=== PATIENT | male | born 1990 | race African-American/Black ===

== ENCOUNTER 2019-10-22 09:31 | Emergency (ER) | payer OTHER ==
[~2019-10-22] VITALS: Ht 190.5 cm; Wt 171.0 kg
[2019-10-22 09:42] VITALS: BP 134/83
[2019-10-22] MEDS ORDERED: IBUPROFEN 400 MG TABLET. PO ONE (10:00)
--- NOTE | 2019-10-22 10:18 | RAD ---
EXAM: Right ankle, 3 views; right tibia and fibula, 2 views. HISTORY: Pain. COMPARISON: None. FINDINGS: 3 views of the right ankle and 2 views the right tibia and fibula are obtained. 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 No acute fracture is seen. The ankle mortise is intact. There is no osteochondral lesion. There is enthesopathy at the Achilles tendon insertion. There is a fragmented osteophyte or joint loose body along the anterior tibial plateau. IMPRESSION: 1. No acute osseous finding. 2. 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 3. Suspected chronic fragmented intra-articular osteophyte or joint loose body along the anterior tibial plateau. Electronically signed by: Shelley Lipscomb MD (10/22/2019 10:15 AM) [facility] [place]
[2019-10-22] MEDS ORDERED: CYCL10TA2 PO (11:47)
[2019-10-22] MEDS ORDERED: NAPR-683 PO (11:47)
--- NOTE | 2019-10-22 11:47 | PHYS DOC ---
Past Medical History Past Medical History: No Pertinent History Past Surgical History: Other Additional Past Surgical Histo: LEFT KNEE Alcohol Use: None Adult General Chief Complaint Chief Complaint: LOWEREXTREMITY INJURY HPI HPI Patient is a 28 year old male without history of medical problems who presents with complaining of a fall and injury to right leg. Patient states he had a fall. He was at work and twisted his right lower extremity and complaining of pain in his ankle and calf and rated his pain 8/10. Patient denies other injuries and loss of consciousness and focal neurodeficit. Review of Systems Review of Systems Constitutional: Denies fever or chills [] Eyes: Denies change in visual acuity, redness, or eye pain [] HENT: Denies nasal congestion or sore throat [] Respiratory: Denies cough or shortness of breath [] Cardiovascular: No additional information not addressed in HPI [] GI: Denies abdominal pain, nausea, vomiting, bloody stools or diarrhea [] : Denies dysuria or hematuria [] Musculoskeletal: Denies back pain, reports joint pain [] Integument: Denies rash or skin lesions [] Neurologic: Denies headache, focal weakness or sensory changes [] Endocrine: Denies polyuria or polydipsia [] All other systems were reviewed and found to be within normal limits, except as documented in this note. Current Medications Current Medications Current Medications Medications (Trade) Dose Ordered Sig/Ranjith Start Time Stop Time Status Last Admin Dose Admin Ibuprofen (Motrin) 800 mg 1X ONCE 10/22/19 10:00 10/22/19 10:01 DC 10/22/19 10:00 800 MG Allergies Allergies Allergies Coded Allergies Type Severity Reaction Last Updated Verified Penicillins Allergy Unknown Swelling 10/22/19 Yes Physical Exam Physical Exam Constitutional: Well developed, well nourished, mild distress, non-toxic appearance. [] HENT: Normocephalic, atraumatic. Eyes: PERRLA, EOMI, conjunctiva normal, no discharge. [] Neck: Normal range of motion, no tenderness, supple, no stridor. [] Cardiovascular:Heart rate regular rhythm, no murmur [] Lungs & Thorax: Bilateral breath sounds clear to auscultation [] Skin: Warm, dry, no erythema, no rash. [] Back: No tenderness, no CVA tenderness. [] Extremities: Right ankle with mild edema and tenderness in lateral malleolus, no deformity, Without deformity or tenderness or contusion. Neurologic: Alert and oriented X 3, no focal deficits noted. [] Psychologic: Affect normal, judgement normal, mood normal. [] Current Patient Data Vital Signs Vital Signs Date Time Temp Pulse Resp B/P (MAP) Pulse Ox O2 Delivery O2 Flow Rate FiO2 10/22/19 09:42 97.5 75 18 134/83 (100) 99 Room Air 97.5 EKG EKG [] Radiology/Procedures Radiology/Procedures [][facility] [address] [place] [address] IMAGING REPORT Signed PATIENT: FRANCIA KWAN ACCOUNT: [id number] : 1990 LOCATION: ER AGE: 28 SEX: M EXAM STATUS: REG ER ORD. PHYSICIAN: ZAFAR CARVER MD REASON: fall PROCEDURE: ANKLE RIGHT 3V EXAM: Right ankle, 3 views; right tibia and fibula, 2 views. HISTORY: Pain. COMPARISON: None. FINDINGS: 3 views of the right ankle and 2 views the right tibia and fibula are obtained. 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 No acute fracture is seen. The ankle mortise is intact. There is no osteochondral lesion. There is enthesopathy at the Achilles tendon insertion. There is a fragmented osteophyte or joint loose body along the anterior tibial plateau. IMPRESSION: 1. No acute osseous finding. 2. 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 3. Suspected chronic fragmented intra-articular osteophyte or joint loose body along the anterior tibial plateau. Electronically signed by: Shelley Mcguire MD (10/22/2019 10:15 AM) [facility] [place]ATED and SIGNED BY: SHELLEY MCGUIRE MD DATE: 10/22/19 1015 Course & Med Decision Making Course & Med Decision Making Pertinent Imaging studies reviewed. (See chart for details) discharge: I've spoken with the patient and/or caregivers. I've explained the patient's condition, diagnosis and treatment plan based on information available to me at this time. I've answered the patient's and/or caregivers questions and addressed any concerns. The patient and/or caregivers have a good understanding the patient's diagnosis, condition and treatment plan as can be expected at this point. Vital signs have been stabilized. The patient's condition is stable for discharge from the emergency department. The patient will pursue further outpatient evaluation with her primary care provider or other designated consulting physician as outlined in the discharge instructions. Patient and/or caregivers are agreeable to this plan of care and follow-up instructions have been explained in detail. The patient and/or caregivers have received these instructions in written format and expressed understanding of these discharge instructions. The patient and her caregivers are aware that if any significant change in condition or worsening of symptoms should prompt him to immediately return to this of the closest emergency department. If an emergent department is not readily available I would encourage him to call 911. Caroline Disclaimer Anneon Disclaimer This electronic medical record was generated, in whole or in part, using a voice recognition dictation system. Departure Departure Impression: Primary Impression: Right leg injury Additional Impressions: Ankle sprain Morbidly obese Disposition: HOME, SELF-CARE (at 1145) Condition: STABLE Referrals: TYESHA KENNEDY DO, [facility] (PCP) Patient Instructions: Ankle Sprain Additional Instructions: Drink plenty of liquids Follow-up with your primary care physician in 3-5 days Return to ER if not getting better Apply ice on the affected area Thank you for visiting . We appreciate you trusting us with your care. If any additional problems come up don't hesitate to return to visit us. Please follow up with your primary care provider so they can plan additional care if needed and know about the problem that you had. If symptoms worsen come back to the Emergency Department. Any concerning symptoms that start such as chest pain, shortness of air, weakness or numbness on one side of the body, running high fevers or any other concerning symptoms return to the ER. Scripts Naproxen (NAPROSYN) 500 Mg Tablet 1 TAB PO BID for pain, #20 TAB Prov: ZAFAR CARVER MD 10/22/19 Cyclobenzaprine Hcl (CYCLOBENZAPRINE HCL) 10 Mg Tablet 1 TAB PO TID, #21 TAB Prov: ZAFAR CARVER MD 10/22/19 Problem Qualifiers Primary Impression: Right leg injury Encounter type: initial encounter Qualified Codes: S89.91XA - Unspecified injury of right lower leg, initial encounter Additional Impressions: Ankle sprain Encounter type: subsequent encounter Involved ligament of ankle: unspecified ligament Laterality: right Qualified Codes: S93.401D - Sprain of unspecified ligament of right ankle, subsequent encounter ZAFAR CARVER MD Oct 22, 2019 11:47
--- NOTE | 2019-10-23 11:22 | RAD ---
EXAM: Right ankle, 3 views; right tibia and fibula, 2 views. HISTORY: Pain. COMPARISON: None. FINDINGS: 3 views of the right ankle and 2 views the right tibia and fibula are obtained. 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 No acute fracture is seen. The ankle mortise is intact. There is no osteochondral lesion. There is enthesopathy at the Achilles tendon insertion. There is a fragmented osteophyte or joint loose body along the anterior tibial plateau. IMPRESSION: 1. No acute osseous finding. 2. 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 3. Suspected chronic fragmented intra-articular osteophyte or joint loose body along the anterior tibial plateau. [facility]
== END 2019-10-22 12:12 | disposition home or self-care (01) ==
LOC: ER 09:31
DX: S93.491A Sprain of other ligament of right ankle, initial encounter (principal); E66.01 Morbid (severe) obesity due to excess calories; Z68.42 Body mass index [BMI] 45.0-49.9, adult; Z98.890 Other specified postprocedural states; W18.39XA Other fall on same level, initial encounter; Y93.89 Activity, other specified; Y92.89 Other specified places as the place of occurrence of the external cause; Y99.0 Civilian activity done for income or pay
CPT/HCPCS: 73590; 73610; 99284

== ENCOUNTER → 2020-04-16 | Outpatient (CLI) | payer OTHER ==
[~2020-04-16] MED LIST: CYCL10TA2 PO; NAPR-683 PO
== END | disposition home or self-care (01) ==
LOC: LAB 12:15
PROVIDERS: ATTEND Internal Medicine Pulmonary Disease
DX: Z20.828 Contact with and (suspected) exposure to other viral communicable diseases (principal)
CPT/HCPCS: U0003-CS

== ENCOUNTER → 2020-06-23 | Outpatient (CLI) | payer OTHER | END | disposition home or self-care (01) | LOC: LAB 10:30 | PROVIDERS: ATTEND Internal Medicine Pulmonary Disease | DX: U07.1 COVID-19 (principal) | CPT/HCPCS: U0003-CS ==